=== PATIENT | male | born 1965 | race Caucasian/White ===

== ENCOUNTER 2017-01-06 09:48 | Emergency (ER) | payer MEDICAID ==
[~2017-01-06] VITALS: Ht 167.6 cm; Wt 82.0 kg
[2017-01-06] MEDS ORDERED: ONDANSETRON 4MG ODT PO STA (10:33)
[2017-01-06] MEDS ORDERED: ACETAMINOPHEN WITH CODEINE 300/30MG TABLET PO STA (10:33)
[2017-01-06 11:25] LABS: BASOPHILS % 0.2 % (0.0-2.0); EOSINOPHILS % 0.1 % (0.0-5.0); HEMATOCRIT. 37.8 % (42.0-52.0); HEMOGLOBIN. 12.3 g/dL (14.0-18.0); LYMPHOCYTES % 7.7 % (20.0-50.0); MEAN CORPUSCULAR HEMOGLOBIN 27.3 pg (28.0-32.0); MEAN CORPUSCULAR VOLUME 83.4 fL (80.0-94.0); MEAN PLATELET VOLUME 8.2 fl (7.4-10.4); MONOCYTES % 3.9 % (2.0-8.0); NEUTROPHILS % 88.1 % (40.0-76.0); PLATELET 351 x1000/uL (130-400); RED BLOOD CELL COUNT 4.53 mill/uL (4.7-6.1); RED CELL DISTRIBUTION WIDTH 16.2 % (11.6-14.6)
[2017-01-06 11:32] LABS: PROTHROMBIN TIME 10.7 sec (9.4-11.6)
[2017-01-06 11:35] LABS: CARBON DIOXIDE 30 mEq/L (21-32); CHLORIDE 107 mEq/L (98-107)
[2017-01-06 14:04] VITALS: BP 138/77
[2017-01-06 14:20] LABS: CLARITY URINE CLEAR (CLEAR); COLOR URINE YELLOW (YELLOW); GLUCOSE URINE NEGATIVE (NEGATIVE); KETONES URINE NEGATIVE (NEGATIVE); LEUKOCYTE ESTERASE URINE NEGATIVE (NEGATIVE); NITRITE URINE NEGATIVE (NEGATIVE); OCCULT BLOOD URINE 2+ (NEGATIVE); PH URINE 6.5 (4.5-8.0); PROTEIN URINE TRACE (NEGATIVE); SPECIFIC GRAVITY URINE 1.027 (1.005-1.030)
== END 2017-01-06 15:08 | disposition home or self-care (01) ==
LOC: ER 10:17
DX: N23 Unspecified renal colic (principal); F17.200 Nicotine dependence, unspecified, uncomplicated; I10 Essential (primary) hypertension; Z86.73 Personal history of transient ischemic attack (TIA), and cerebral infarction without residual deficits
CPT/HCPCS: 36415; 74176; 80053; 81001; 83690; 85025; 85610; 99285; 99406; Q0162; Z7610

== ENCOUNTER 2017-12-06 07:38 | Emergency (ER) | payer MEDICAID ==
[~2017-12-06] VITALS: Ht 167.6 cm; Wt 89.0 kg
[2017-12-06 07:50] VITALS: BP 184/106
== END 2017-12-06 12:13 | disposition left against medical advice (07) ==
LOC: ER 08:01
DX: M25.522 Pain in left elbow (principal); Z53.21 Procedure and treatment not carried out due to patient leaving prior to being seen by health care provider

== ENCOUNTER 2019-01-24 12:11 | Inpatient (IN) | payer MEDICAID, OTHER ==
[~2019-01-24] VITALS: Ht 167.6 cm; Wt 70.8 kg
[2019-01-24 13:57] LABS: BASOPHILS % 0.9 % (0.0-2.0); EOSINOPHILS % 2.6 % (0.0-5.0); HEMATOCRIT. 38.8 % (42.0-52.0); HEMOGLOBIN. 13.1 g/dL (14.0-18.0); MEAN CORPUSCULAR HEMOGLOBIN 29.6 pg (28.0-32.0); MEAN CORPUSCULAR VOLUME 88.1 fL (80.0-94.0); MEAN PLATELET VOLUME 8.5 fl (7.4-10.4); MONOCYTES % 6.2 % (2.0-8.0); NEUTROPHILS % 65.3 % (40.0-76.0); PLATELET 283 x1000/uL (130-400); RED BLOOD CELL COUNT 4.41 mill/uL (4.7-6.1); RED CELL DISTRIBUTION WIDTH 14.7 % (11.6-14.6)
[2019-01-24 14:00] LABS: CHLORIDE 107 mEq/L (98-107)
[2019-01-24] MEDS ORDERED: IOHEXOL-350 100 ML BOTTLE ONE (15:16)
[2019-01-24] MEDS ORDERED: GABAPENTIN 300MG CAPSULE PO STA (17:09)
[2019-01-24] MEDS ORDERED: AMLO10TA80 MT (19:47)
[2019-01-24] MEDS ORDERED: ATOR40TA70 MT (19:48)
[2019-01-24] MEDS ORDERED: LISI40TA4 MT (19:51)
[2019-01-24] MEDS ORDERED: CLOP75TA33 PO (19:51)
[2019-01-24] MEDS ORDERED: GABA800T97 MT (19:51)
[2019-01-24] MEDS ORDERED: IBUP-2030 MT (19:51)
[2019-01-24] MEDS ORDERED: CLON0.2T MT (19:51)
[2019-01-24] MEDS ORDERED: METO-411 MT (19:51)
[2019-01-24] MEDS ORDERED: GABAPENTIN 400MG CAPSULE PO ONE (20:00)
[2019-01-24] MEDS ORDERED: CLONIDINE 0.2MG TABLET PO ONE (20:00)
[2019-01-24 21:30] VITALS: BP 161/70
[2019-01-24] MEDS ORDERED: HYDROCODONE/ACETAMINOPHEN 5/325MG TABLET PO PRN (22:30)
[2019-01-25] MEDS: GABAPENTIN 300MG CAPSULE PO SCH ×3 (05:46→21:23)
[2019-01-25 08:00] VITALS: BP 166/65
[2019-01-25] MEDS: AMLODIPINE 10MG TABLET PO SCH (08:56)
[2019-01-25] MEDS: CLOPIDOGREL 75MG TABLET PO SCH (08:56)
[2019-01-25] MEDS: LISINOPRIL 40MG TABLET PO SCH (08:57)
[2019-01-25] MEDS: ASPIRIN 325MG EC TABLET PO SCH (08:57)
[2019-01-25 12:00] VITALS: BP 136/78
[2019-01-25 16:00] VITALS: BP 169/76
[2019-01-25] MEDS: CLONIDINE 0.1MG TABLET PO PRN (17:15)
[2019-01-25] MEDS: NICOTINE 7MG PATCH TD SCH (18:30)
[2019-01-25 20:00] VITALS: BP 140/86
[2019-01-25] MEDS ORDERED: ATORVASTATIN CALCIUM 40MG TABLET PO SCH (21:00)
[2019-01-25] MEDS: LIDOCAINE 5% PATCH TOP SCH (21:23)
[2019-01-25] MEDS: HYDRALAZINE HCL 50MG TABLET PO SCH (21:24)
[2019-01-26] VITALS: BP 136/85
[2019-01-26 02:59] LABS: CLARITY URINE CLEAR (CLEAR); COLOR URINE YELLOW (YELLOW); KETONES URINE NEGATIVE (NEGATIVE); LEUKOCYTE ESTERASE URINE NEGATIVE (NEGATIVE); NITRITE URINE NEGATIVE (NEGATIVE); OCCULT BLOOD URINE NEGATIVE (NEGATIVE); PROTEIN URINE NEGATIVE (NEGATIVE); SPECIFIC GRAVITY URINE 1.009 (1.005-1.030); UROBILINOGEN URINE 0.2 E.U./dL (0.2-1.0)
[2019-01-26 03:21] LABS: *AMPHETAMINES SCREEN URINE NEGATIVE (NEGATIVE); *BARBITURATES SCREEN URINE NEGATIVE (NEGATIVE); *BENZODIAZEPINES SCREEN URINE NEGATIVE (NEGATIVE); *COCAINE SCREEN URINE NEGATIVE (NEGATIVE)
[2019-01-26 03:22] LABS: CANNABINOID URINE SCREEN NEGATIVE (NEGATIVE); METHADONE URINE SCREEN NEGATIVE (NEGATIVE); OPIATES URINE SCREEN NEGATIVE (NEGATIVE); PHENCYCLIDINE URINE SCREEN NEGATIVE (NEGATIVE)
[2019-01-26 04:00] VITALS: BP 139/85
[2019-01-26] MEDS: GABAPENTIN 300MG CAPSULE PO SCH ×2 (05:20→13:03)
[2019-01-26 06:46] LABS: BASOPHILS % 0.7 % (0.0-2.0); EOSINOPHILS % 2.1 % (0.0-5.0); HEMATOCRIT. 40.7 % (42.0-52.0); HEMOGLOBIN. 13.9 g/dL (14.0-18.0); LYMPHOCYTES % 21.1 % (20.0-50.0); MEAN CORPUSCULAR HEMOGLOBIN 29.9 pg (28.0-32.0); MEAN CORPUSCULAR VOLUME 87.5 fL (80.0-94.0); MEAN PLATELET VOLUME 8.7 fl (7.4-10.4); MONOCYTES % 7.7 % (2.0-8.0); NEUTROPHILS % 68.4 % (40.0-76.0); PLATELET 303 x1000/uL (130-400); RED BLOOD CELL COUNT 4.65 mill/uL (4.7-6.1); RED CELL DISTRIBUTION WIDTH 15.2 % (11.6-14.6)
[2019-01-26 08:00] VITALS: BP 121/79
[2019-01-26 08:18] LABS: CHLORIDE 107 mEq/L (98-107)
[2019-01-26] MEDS: HYDRALAZINE HCL 50MG TABLET PO SCH (09:00)
[2019-01-26] MEDS: NICOTINE 7MG PATCH TD SCH (09:19)
[2019-01-26] MEDS: LIDOCAINE 5% PATCH TOP SCH (09:20)
[2019-01-26] MEDS: CLOPIDOGREL 75MG TABLET PO SCH (09:21)
[2019-01-26] MEDS: ASPIRIN 325MG EC TABLET PO SCH (09:21)
[2019-01-26] MEDS: AMLODIPINE 10MG TABLET PO SCH (09:21)
[2019-01-26] MEDS: LISINOPRIL 40MG TABLET PO SCH (09:21)
[2019-01-26 12:00] VITALS: BP 179/85
[2019-01-26] MEDS: CLONIDINE 0.1MG TABLET PO PRN (13:05)
[2019-01-26 15:07] VITALS: BP 179/85
== END 2019-01-26 15:39 | disposition home or self-care (01) | DRG 48 ==
LOC: ER 12:11 → 8WST 16:55 → EDBEDREQ 16:59 → ENRESERV 20:22
PROVIDERS: ADMIT Internal Medicine; ATTEND Internal Medicine
DX: G90.8 Other disorders of autonomic nervous system (principal); I65.1 Occlusion and stenosis of basilar artery; F17.210 Nicotine dependence, cigarettes, uncomplicated; G83.24 Monoplegia of upper limb affecting left nondominant side; I10 Essential (primary) hypertension; I65.23 Occlusion and stenosis of bilateral carotid arteries; Z79.899 Other long term (current) drug therapy; Z71.6 Tobacco abuse counseling; I69.354 Hemiplegia and hemiparesis following cerebral infarction affecting left non-dominant side
CPT/HCPCS: 36415; 70496; 70498; 70551; 71045; 80048; 80061; 80305; 81003; 82962; 83735; 84484; 93005; 97161; 99285; J7042; Q9967

== ENCOUNTER 2019-01-30 19:17 | Emergency (ER) | payer OTHER ==
[~2019-01-30] VITALS: Ht 167.6 cm; Wt 82.0 kg
[~2019-01-30 19:17] MED LIST: AMLO10TA80 MT; ATOR40TA70 MT; CLON0.2T MT; CLOP75TA33 PO; GABA800T97 MT; IBUP-2030 MT; LISI40TA4 MT; METO-411 MT
[2019-01-30] MEDS ORDERED: CLONIDINE 0.1MG TABLET PO ONE (20:45)
[2019-01-30 21:47] LABS: BASOPHILS % 0.3 % (0.0-2.0); EOSINOPHILS % 1.8 % (0.0-5.0); HEMATOCRIT. 41.7 % (42.0-52.0); LYMPHOCYTES % 23.3 % (20.0-50.0); MEAN CORPUSCULAR HEMOGLOBIN 29.6 pg (28.0-32.0); MEAN CORPUSCULAR VOLUME 87.9 fL (80.0-94.0); MEAN PLATELET VOLUME 8.7 fl (7.4-10.4); MONOCYTES % 6.6 % (2.0-8.0); PLATELET 311 x1000/uL (130-400); RED BLOOD CELL COUNT 4.75 mill/uL (4.7-6.1); RED CELL DISTRIBUTION WIDTH 14.6 % (11.6-14.6)
[2019-01-30 21:48] LABS: CHLORIDE 106 mEq/L (98-107)
[2019-01-30 22:18] VITALS: BP 140/52
== END 2019-01-30 22:57 | disposition home or self-care (01) ==
LOC: ER 19:17
DX: I10 Essential (primary) hypertension (principal); F17.200 Nicotine dependence, unspecified, uncomplicated; G81.94 Hemiplegia, unspecified affecting left nondominant side; Z79.899 Other long term (current) drug therapy; Z86.73 Personal history of transient ischemic attack (TIA), and cerebral infarction without residual deficits
CPT/HCPCS: 36415; 71045; 80053; 84484; 85025; 93005; 99284; Z7610

== ENCOUNTER 2019-04-17 04:51 | Emergency (ER) | payer MEDICAID, OTHER ==
[~2019-04-17] VITALS: Ht 167.6 cm; Wt 82.0 kg
[2019-04-17 05:22] VITALS: BP 204/98
[2019-04-17] MEDS ORDERED: IBUPROFEN 800MG TABLET PO ONE (08:00)
== END 2019-04-17 09:04 | disposition home or self-care (01) ==
LOC: ER 04:51
DX: S50.02XA Contusion of left elbow, initial encounter (principal); I10 Essential (primary) hypertension; F17.200 Nicotine dependence, unspecified, uncomplicated; W18.30XA Fall on same level, unspecified, initial encounter; Y93.89 Activity, other specified; Y92.89 Other specified places as the place of occurrence of the external cause; Y99.8 Other external cause status; Z79.899 Other long term (current) drug therapy; Z86.73 Personal history of transient ischemic attack (TIA), and cerebral infarction without residual deficits
CPT/HCPCS: 73030; 73070; 99283

== ENCOUNTER 2021-02-06 11:10 | Emergency (ER) | payer MEDICAID, OTHER ==
[~2021-02-06] VITALS: Ht 175.3 cm; Wt 80.0 kg
[~2021-02-06 11:10] MED LIST changes: +LISI40TA13 MT; -LISI40TA4 MT
[2021-02-06 11:53] LABS: HEMATOCRIT. 42.5 % (42.0-52.0); MEAN CORPUSCULAR HEMOGLOBIN 30.1 pg (28.0-32.0); MEAN CORPUSCULAR VOLUME 91.8 fL (80.0-94.0); MEAN PLATELET VOLUME 8.3 fl (7.4-10.4); PLATELET 287 x1000/uL (130-400); RED BLOOD CELL COUNT 4.64 mill/uL (4.7-6.1); RED CELL DISTRIBUTION WIDTH 14.1 % (11.6-14.6)
[2021-02-06 12:01] LABS: CHLORIDE 108 mEq/L (98-107)
[2021-02-06] MEDS ORDERED: HYDRALAZINE 20MG/ML VIAL IV ONE (12:15)
[2021-02-06 12:31] LABS: PLATELET ESTIMATE NORMAL
[2021-02-06 12:36] LABS: PROTHROMBIN TIME 10.5 sec (9.6-11.0)
[2021-02-06 14:36] VITALS: BP 185/90
== END 2021-02-06 15:22 | disposition short-term general hospital (02) ==
LOC: ER 11:19 → CANBEDREQ 15:58
DX: I10 Essential (primary) hypertension (principal); R00.1 Bradycardia, unspecified; Z86.73 Personal history of transient ischemic attack (TIA), and cerebral infarction without residual deficits; Z79.899 Other long term (current) drug therapy
CPT/HCPCS: 36415; 70450; 71045; 80053; 83605; 84145; 84484; 85025; 85610; 87040; 93005; 96374; 99285; J0360

== ENCOUNTER 2022-09-09 19:10 | Emergency (ER) | payer MEDICAID, OTHER ==
[~2022-09-09] VITALS: Ht 162.6 cm; Wt 71.2 kg
[2022-09-09 20:24] LABS: BASOPHILS % 0.4 % (0.0-2.0); EOSINOPHILS % 2.2 % (0.0-5.0); HEMATOCRIT. 37.5 % (42.0-52.0); HEMOGLOBIN. 12.6 g/dL (14.0-18.0); LYMPHOCYTES % 19.3 % (20.0-50.0); MEAN CORPUSCULAR HEMOGLOBIN 30.2 pg (28.0-32.0); MEAN CORPUSCULAR VOLUME 90.2 fL (80.0-94.0); MEAN PLATELET VOLUME 7.8 fl (7.4-10.4); MONOCYTES % 5.2 % (2.0-8.0); NEUTROPHILS % 72.9 % (40.0-76.0); PLATELET 316 x1000/uL (130-400); RED BLOOD CELL COUNT 4.16 mill/uL (4.7-6.1)
[2022-09-09 20:29] LABS: CHLORIDE 103 mEq/L (98-107)
[2022-09-09] MEDS ORDERED: ASPIRIN 81MG TABLET PO ONE (20:30)
[2022-09-09] MEDS ORDERED: CLOPIDOGREL 75MG TABLET PO ONE (20:30)
[2022-09-09 20:34] LABS: PROTHROMBIN TIME 10.8 sec (9.6-11.0)
[2022-09-10 02:30] VITALS: BP 117/48
== END 2022-09-10 03:16 | disposition short-term general hospital (02) ==
LOC: ER 19:10 → CANBEDREQ 09-10 05:08
DX: I63.9 Cerebral infarction, unspecified (principal); E78.00 Pure hypercholesterolemia, unspecified; I10 Essential (primary) hypertension; Z86.73 Personal history of transient ischemic attack (TIA), and cerebral infarction without residual deficits; F14.10 Cocaine abuse, uncomplicated; Z20.822 Contact with and (suspected) exposure to COVID-19
CPT/HCPCS: 36415; 70450; 70496; 71045; 80053; 84484; 85025; 85610; 87426; 93005; 99291; C9803; Z7610